=== PATIENT | male | born 1945 | race Caucasian/White ===

== ENCOUNTER 2016-12-17 12:29 | Inpatient (IN) | payer MEDICARE ==
[~2016-12-17] VITALS: Ht 172.7 cm; Wt 128.7 kg
[2016-12-17] MEDS ORDERED: METF-415 PO ×2 (12:41→18:31)
[2016-12-17] MEDS ORDERED: HYDR25TA6 PO (12:41)
[2016-12-17] MEDS ORDERED: CETI10TA PO ×2 (12:41→18:31)
[2016-12-17] MEDS ORDERED: LISI-538 PO ×2 (12:41→18:31)
[2016-12-17] MEDS ORDERED: ATEN25TA PO ×2 (12:41→18:31)
[2016-12-17] MEDS ORDERED: ROSU40TA PO (12:41)
[2016-12-17] MEDS ORDERED: NITR0.4S14 SC (12:41)
[2016-12-17] MEDS ORDERED: SERT25TA88 PO ×2 (12:41→18:31)
[2016-12-17] MEDS ORDERED: PERCOCET 5MG/325MG TAB PO ONE (13:30)
[2016-12-17 14:41] LABS: MEAN CORPUSCULAR HEMOGLOBIN 32.2 pg (27.0-33.0); MEAN CORPUSCULAR HGB CONC 34.2 g/dl (32.0-36.5); MEAN CORPUSCULAR VOLUME 94.1 fl (80.0-96.0); NEUTROPHILS % 82.8 % (36.0-66.0); PLATELET COUNT, AUTOMATED 367 k/mm3 (150-450); RED CELL DISTRIBUTION WIDTH 12.8 % (11.5-14.5); WHITE BLOOD COUNT 17.2 K/mm3 (4.0-10.0)
[2016-12-17 14:42] LABS: BASO % 0.2 % (0.0-1.0); EOS # 0.1 K/mm3 (0.0-0.50); EOS % 0.6 % (0.0-3.0); LARGE UNSTAINED CELL # 0.3 K/mm3 (0.0-0.4); LARGE UNSTAINED CELL % 1.9 % (0.0-4.0); LYMPH # 1.8 K/mm3 (1.5-4.5); LYMPH % 8.7 % (24.0-44.0); MONO % 5.8 % (0.0-5.0); NEUTROPHILS # 14.3 K/mm3 (1.8-7.7)
[2016-12-17 15:02] LABS: ANION GAP 8 MEQ/L (8-16); BLOOD UREA NITROGEN 12 MG/DL (7-18); CALCIUM LEVEL 9.1 MG/DL (8.8-10.2); CARBON DIOXIDE LEVEL 30 MEQ/L (21-32); CHLORIDE LEVEL 92 MEQ/L (98-107); CREATININE FOR GFR 0.77 MG/DL (0.70-1.30); GLOMERULAR FILTRATION RATE > 60.0 (>42); GLUCOSE, FASTING 116 MG/DL (83-110); POTASSIUM SERUM 3.5 MEQ/L (3.5-5.1); SODIUM LEVEL 130 MEQ/L (136-145)
[2016-12-17] MEDS ORDERED: PIPERACILLIN/TAZOBACTAM SOD 3.375 GM in D5W MINI-BAG PLUS 50 ML IV ONE (17:00)
[2016-12-17] MEDS ORDERED: VANCOMYCIN HCL 1,000 MG, VIAL MATE ADAPTER 1 EACH in D5W 250 ML IV ONE ×2 (17:00→21:00)
[2016-12-17] MEDS ORDERED: ISOVUE-370 76% 100ML VIAL (Q9967) As Ordered ONE (17:07)
[2016-12-17] MEDS ORDERED: CRES40TA PO (18:31)
[2016-12-17] MEDS ORDERED: HYDR25TAB PO (18:31)
[2016-12-17] MEDS ORDERED: NITR4TASL SL (18:31)
[2016-12-17] MEDS ORDERED: ASPI1TAB15 PO (18:31)
[2016-12-17] MEDS ORDERED: NS 1,000 ML IV SCH (18:46)
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
[2016-12-17] MEDS ORDERED: DEXTROSE 50% 50 ML SYRINGE IV PRN (19:00)
[2016-12-17] MEDS ORDERED: GLUCAGON FOR INJ 1 MG VIAL (J1610) SC PRN (19:00)
[2016-12-17] MEDS ORDERED: GLUCOSE 4 GM CHEW TABLET PO PRN (19:00)
[2016-12-17] MEDS ORDERED: NITROGLYCERIN 0.4 MG SUBL TABLET SL PRN (19:00)
[2016-12-17 20:00] VITALS: BP 145/67
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
[2016-12-17] MEDS: HumaLOG INSULIN (NovoLOG) PER UNIT SC SCH (20:28)
[2016-12-17] MEDS: CETIRIZINE (ZyrTEC) 10 MG TAB PO SCH (20:44)
[2016-12-17] MEDS: ASPIRIN 81 MG ENTERIC TAB PO SCH (20:44)
[2016-12-17] MEDS: SERTRALINE HCL 25 MG TABLET PO SCH (20:44)
[2016-12-17] MEDS: ROSUVASTATIN 10 MG TAB (CRESTOR) PO SCH (20:44)
[2016-12-17] MEDS: LISINOPRIL 20 MG TAB PO SCH (20:45)
[2016-12-17] MEDS: ATENOLOL 25 MG TAB PO SCH (20:46)
[2016-12-17] MEDS: PERCOCET 5MG/325MG TAB PO PRN (21:51)
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
[2016-12-18] MEDS: PIPERACILLIN/TAZOBACTAM SOD 3.375 GM in D5W MINI-BAG PLUS 50 ML IV SCH ×4 (00:27→18:09)
[2016-12-18 02:00] VITALS: BP 138/74
[2016-12-18] MEDS: VANCOMYCIN HCL 1,000 MG, VIAL MATE ADAPTER 1 EACH in D5W 250 ML IV SCH ×2 (03:35→16:02)
[2016-12-18] MEDS: PERCOCET 5MG/325MG TAB PO PRN ×4 (05:44→21:45)
[2016-12-18 06:00] VITALS: BP 131/69
[2016-12-18 06:00] LABS: BASO % 0.3 % (0.0-1.0); EOS # 0.2 K/mm3 (0.0-0.50); EOS % 1.3 % (0.0-3.0); LARGE UNSTAINED CELL # 0.3 K/mm3 (0.0-0.4); LARGE UNSTAINED CELL % 2.2 % (0.0-4.0); LYMPH # 2.1 K/mm3 (1.5-4.5); LYMPH % 13.3 % (24.0-44.0); MEAN CORPUSCULAR HEMOGLOBIN 32.6 pg (27.0-33.0); MEAN CORPUSCULAR HGB CONC 34.8 g/dl (32.0-36.5); MEAN CORPUSCULAR VOLUME 93.8 fl (80.0-96.0); MONO # 0.9 K/mm3 (0.0-0.8); MONO % 6.8 % (0.0-5.0); NEUTROPHILS # 10.1 K/mm3 (1.8-7.7); NEUTROPHILS % 76.1 % (36.0-66.0); PLATELET COUNT, AUTOMATED 354 k/mm3 (150-450); RED CELL DISTRIBUTION WIDTH 12.8 % (11.5-14.5); WHITE BLOOD COUNT 13.3 K/mm3 (4.0-10.0)
[2016-12-18 06:14] LABS: ANION GAP 8 MEQ/L (8-16); BLOOD UREA NITROGEN 10 MG/DL (7-18); CALCIUM LEVEL 8.9 MG/DL (8.8-10.2); CARBON DIOXIDE LEVEL 27 MEQ/L (21-32); CHLORIDE LEVEL 95 MEQ/L (98-107); CREATININE FOR GFR 0.74 MG/DL (0.70-1.30); GLOMERULAR FILTRATION RATE > 60.0 (>42); GLUCOSE, FASTING 173 MG/DL (83-110); MAGNESIUM LEVEL 2.4 MG/DL (1.8-2.4); POTASSIUM SERUM 3.4 MEQ/L (3.5-5.1); SODIUM LEVEL 130 MEQ/L (136-145)
[2016-12-18 06:42] LABS: ERYTHROCYTE SEDIMENTATION RATE 63 mm/hr (0-20)
[2016-12-18] MEDS: HumaLOG INSULIN (NovoLOG) PER UNIT SC SCH ×4 (07:44→21:00)
[2016-12-18 10:00] VITALS: BP 148/90
[2016-12-18 14:00] VITALS: BP 127/65
[2016-12-18] MEDS ORDERED: POTASSIUM CHLORIDE 10 MEQ SR TABLET PO ONE (14:15)
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
[2016-12-18 16:31] LABS: ANION GAP 10 MEQ/L (8-16); BLOOD UREA NITROGEN 12 MG/DL (7-18); CALCIUM LEVEL 8.6 MG/DL (8.8-10.2); CARBON DIOXIDE LEVEL 25 MEQ/L (21-32); CHLORIDE LEVEL 97 MEQ/L (98-107); CREATININE FOR GFR 0.76 MG/DL (0.70-1.30); GLOMERULAR FILTRATION RATE > 60.0 (>42); GLUCOSE, FASTING 157 MG/DL (83-110); POTASSIUM SERUM 3.7 MEQ/L (3.5-5.1); SODIUM LEVEL 132 MEQ/L (136-145)
[2016-12-18 18:00] VITALS: BP 148/80
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
[2016-12-18] MEDS: ATENOLOL 25 MG TAB PO SCH (20:13)
[2016-12-18] MEDS: CETIRIZINE (ZyrTEC) 10 MG TAB PO SCH (20:13)
[2016-12-18] MEDS: ASPIRIN 81 MG ENTERIC TAB PO SCH (20:13)
[2016-12-18] MEDS: ROSUVASTATIN 10 MG TAB (CRESTOR) PO SCH (20:14)
[2016-12-18] MEDS: LISINOPRIL 20 MG TAB PO SCH (20:14)
[2016-12-18] MEDS: SERTRALINE HCL 25 MG TABLET PO SCH (20:14)
[2016-12-18 22:00] VITALS: BP 143/60
[2016-12-19] VITALS (8 sets, daily range): BP systolic 127–182; BP diastolic 60–84
[2016-12-19 06:03] LABS: BASO % 0.3 % (0.0-1.0); EOS # 0.3 K/mm3 (0.0-0.50); EOS % 1.8 % (0.0-3.0); LARGE UNSTAINED CELL # 0.3 K/mm3 (0.0-0.4); LYMPH # 2.1 K/mm3 (1.5-4.5); LYMPH % 11.5 % (24.0-44.0); MEAN CORPUSCULAR HEMOGLOBIN 32.2 pg (27.0-33.0); MEAN CORPUSCULAR HGB CONC 34.1 g/dl (32.0-36.5); MEAN CORPUSCULAR VOLUME 94.6 fl (80.0-96.0); MONO # 1.1 K/mm3 (0.0-0.8); MONO % 7.2 % (0.0-5.0); NEUTROPHILS % 77.1 % (36.0-66.0); PLATELET COUNT, AUTOMATED 364 k/mm3 (150-450); RED CELL DISTRIBUTION WIDTH 12.9 % (11.5-14.5); WHITE BLOOD COUNT 15.6 K/mm3 (4.0-10.0)
[2016-12-19 06:28] LABS: ANION GAP 9 MEQ/L (8-16); BLOOD UREA NITROGEN 8 MG/DL (7-18); CALCIUM LEVEL 8.3 MG/DL (8.8-10.2); CARBON DIOXIDE LEVEL 25 MEQ/L (21-32); CHLORIDE LEVEL 103 MEQ/L (98-107); CREATININE FOR GFR 0.71 MG/DL (0.70-1.30); GLOMERULAR FILTRATION RATE > 60.0 (>42); GLUCOSE, FASTING 161 MG/DL (83-110); MAGNESIUM LEVEL 2.6 MG/DL (1.8-2.4); SODIUM LEVEL 137 MEQ/L (136-145)
[2016-12-19 06:51] LABS: ERYTHROCYTE SEDIMENTATION RATE 63 mm/hr (0-20)
[2016-12-19] MEDS: HumaLOG INSULIN (NovoLOG) PER UNIT SC SCH ×4 (07:30→21:00)
[2016-12-19] MEDS: SILVER SULFADIAZINE 1% CR 50 GM JAR TOP SCH (07:44)
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
[2016-12-19] MEDS: PERCOCET 5MG/325MG TAB PO PRN ×4 (12:48→22:54)
--- NOTE | 2016-12-19 12:53 | IPN ---
DATE: 12/19/2016 SUBJECTIVE: The patient tells me that his pain is under control. He tells me that he has no fevers, chills, chest pain, shortness of breath, nausea, vomiting, or diarrhea. OBJECTIVE: Vital Signs: Temperature 98.2. Pulse 71. Respiratory rate 18. Blood pressure 160/72. Oxygen saturation 92% on room air. General: He is a pleasant, disheveled, elderly, man lying flat in bed in no distress. HEENT: Cranial nerves II-XII grossly intact. He has moist mucous membranes. No elevation of CVP. Cardiovascular Exam: S1, S2, regular. Respiratory Exam: Clear. Abdominal Exam: Obese. Extremities: No clubbing or cyanosis. He has Kerlix wrapped around his right lower extremity which is serosanguineous stained. His left lower extremity ecchymotic area appears unchanged. LABORATORY STUDIES: Today, WBC 15.6, hemoglobin 12.1, hematocrit 35.5 and platelet count 364,000. Erythrocyte sedimentation rate is present at 63. Chemistry panel with sodium 137, potassium 4.0, chloride 103, bicarbonate 25, BUN 8, creatinine 0.7, CRP 8.9 down from 11.5 yesterday. MICROBIOLOGY: Blood cultures are negative thus far after 24 hours. The wound culture reveals a few gram negative rods, a few gram positive cocci in pairs. No new imaging. ASSESSMENT AND PLAN: This is a 71-year-old man with lower extremity wounds secondary to granda. 1. Granda. Dr. Freire's help has been greatly appreciated. The plan is for him to go to the operating room (OR) today for debridement. Dressing changes as per Dr. Freire who has seen and evaluated the patient's wounds at bedside. Dr. Hill's recommendations are appreciated. However, he has been unable to physically visit the patient and inspect the wounds and as such for now will stick with Dr. Freire's recommendations. In terms of antibiotics, Dr. Fox has narrowed antibiotic spectrum. Her help is greatly appreciated. Dr. Hill feels there is no indication for IV antibiotics. Once again, unfortunately, he has been unable to personally actually see these wounds and as such will defer to infectious disease specialist. 2. Type 2 diabetes. He is on sliding scale. 3. Hypertension. He is on atenolol and lisinopril. 4. Mood disorder. He is on Sertraline. 5. Coronary artery disease. He is on an aspirin, statin and a beta chari. 6. Hyponatremia. Likely hypovolemic. Resolved with IV fluids. Will discontinue any further IV fluids after OR debridement. 7. Seasonal allergies. He is on Zyrtec. 8. Deep vein thrombosis (DVT) prophylaxis. Sequentials and thromboembolic deterrent stockings (TEDS). Early ambulation. Following debridement, could consider starting pharmacological DVT prophylaxis tomorrow.
[2016-12-19] MEDS ORDERED: SUCCINYLCHOLINE 100 MG/5 ML SYRINGE (J0330) As Ordered ONE (16:49)
[2016-12-19] MEDS ORDERED: MIDAZOLAM INJ 2 MG/2 ML VIAL (J2250) As Ordered ONE (16:49)
[2016-12-19] MEDS ORDERED: ETOMIDATE INJ 20MG/10ML VIAL As Ordered ONE (16:49)
[2016-12-19] MEDS ORDERED: LIDOCAINE 2% INJ 100 MG/5 ML SDV (FOR ANES.) As Ordered ONE (16:49)
[2016-12-19] MEDS ORDERED: PROPOFOL 200 MG/20 ML VIAL As Ordered ONE (16:49)
[2016-12-19] MEDS ORDERED: fentaNYL 100 MCG/2 ML INJECTION (J3010) As Ordered ONE ×2 (16:50→18:41)
[2016-12-19] MEDS ORDERED: THROMBIN SOLN 20,000 UNITS KIT As Ordered ONE ×2 (17:10→17:47)
[2016-12-19] MEDS ORDERED: LIDOCAINE W/EPINEPHRINE 1% 20ML VIAL As Ordered ONE (17:10)
[2016-12-19] MEDS ORDERED: ROCURONIUM BROMIDE 50 MG/5 ML VIAL/SYRINGE As Ordered ONE (17:18)
[2016-12-19] MEDS ORDERED: SUGAMMADEX SODIUM 500 MG/5 ML VIAL (BRIDION) As Ordered ONE (17:53)
[2016-12-19] MEDS ORDERED: ONDANSETRON 4MG/2ML VIAL (J2405) As Ordered ONE ×2 (17:57→18:30)
--- NOTE | 2016-12-19 18:24 | ROOPDOC ---
[facility] Report Of Operation Report of Operation DATE OF PROCEDURE: 12/19/16 PREPROCEDURE DIAGNOSES: full thickness burn wound dorsum of foot (15 x 15 cms) POSTPROCEDURE DIAGNOSES: same. PROCEDURE:Sharp debridement of burn wound to healthy tissues SURGEON: Viky Freire MD LABORER [employer]ARN: SHANICE Esparza ANESTHESIA: general ESTIMATED BLOOD LOSS: [id number] mL. COMPLICATIONS: none REMARKS: full thickness/leathery burn skin on dorsum of right foot with surrounding skin down to the bases of 2nd to 4th fingers, then laterally to the lateral plantar area with deep partial thickness granda, blistering of skin. PROCEDURE NOTE: tangential burned skin debridement to healthy superficial subcutaneous tissue. no tendon involvement. DESCRIPTION OF PROCEDURE: Patient remains on antibiotics for cellulitis secondary to his delayed presentation for his burn wound. His right leg and foot is prepped and draped in usual sterile fashion. After surgical timeout may begin surgery. Using a Goulian knife, tangential debridement was performed on the eschar and full-thickness burn wound on the dorsum of his right foot which measures about 15 x 15 cm, essentially the whole of the dorsum of the foot extending to the base of the toes to the ankle area and extending laterally towards the plantar area. This was continued until we get bleeding tissues. On some of the areas where it seems towards full-thickness, there still remained some portion of the deep dermis that appears healthy. We compressed at the area with thrombin containing laparotomy pads. Brisk bleeding points were cauterized. Before putting on her final dressing we sprayed the area with thrombin once more making sure we had adequate hemostasis. The whole area was then covered with Drytex for absorption of the transudate/exudate and compression dressing using Kerlix rolls, ABD pads and Coban. Patient tolerated procedure well he was successfully extubated and brought to recovery room stable RADHA FREIRE MD Dec 19, 2016 18:24
[2016-12-19] MEDS ORDERED: PERCOCET 5MG/325MG TAB As Ordered ONE ×2 (18:41→19:18)
[2016-12-19] MEDS: fentaNYL 100 MCG/2 ML INJECTION (J3010) IV PRN ×3 (18:45→18:55)
[2016-12-19] MEDS ORDERED: LR 1,000 ML IV SCH (18:45)
[2016-12-19] MEDS ORDERED: ONDANSETRON 4MG/2ML VIAL (J2405) IV PRN (18:45)
[2016-12-19] MEDS ORDERED: ATENOLOL 25 MG TAB As Ordered ONE (19:22)
[2016-12-19] MEDS: ATENOLOL 25 MG TAB PO SCH (19:24)
[2016-12-19] MEDS ORDERED: LABETALOL HCL 100 MG/20 ML VIAL As Ordered ONE (19:28)
[2016-12-19] MEDS: LABETALOL HCL 100 MG/20 ML VIAL IV PRN ×2 (19:33→19:43)
[2016-12-19] MEDS: ASPIRIN 81 MG ENTERIC TAB PO SCH (20:26)
[2016-12-19] MEDS: CETIRIZINE (ZyrTEC) 10 MG TAB PO SCH (20:26)
[2016-12-19] MEDS: SERTRALINE HCL 25 MG TABLET PO SCH (20:26)
[2016-12-19] MEDS: ROSUVASTATIN 10 MG TAB (CRESTOR) PO SCH (20:26)
[2016-12-19] MEDS: LISINOPRIL 20 MG TAB PO SCH (20:26)
--- NOTE | 2016-12-19 21:50 | CR ---
DATE OF CONSULTATION: 12/18/2016 REASON FOR CONSULTATION: Asked to consult by hospitalist for evaluation of right foot burn. HISTORY OF PRESENT ILLNESS Mr. Crandall is a pleasant 71-year-old gentleman who spilled very hot chocolate that was coming out of a microwave over the dorsum aspect of his right foot the past Thursday, six days ago. The patient states that the wound has progressed and gotten worse. He presented his primary care physician's office who was concerned and, therefore, he sent him to the emergency room. The patient did not have any associated fever or chills, no nausea, vomiting or diarrhea, no chest pain or shortness of breath. He has been in the hospital for 48 hours, was started on broad-spectrum antibiotics with intravenous (IV) vancomycin and Zosyn. His white count which was elevated at 17,000, improved down to 13. PAST MEDICAL HISTORY: Significant for: 1. Diabetes with neuropathy, non insulin dependent. 2. Hypertension. 3. Hyperlipidemia. 4. Coronary artery disease status post percutaneous coronary intervention (PCI). PAST SURGICAL HISTORY Stent placement, colonoscopies in 2012 and 2015, done by Dr. Manning. SOCIAL HISTORY: History of tobacco abuse, quit many years ago. He denies alcohol or illicit drug use. He lives alone. He is independent. FAMILY HISTORY: Non revealing. ALLERGIES: No known drug allergies. REVIEW OF SYSTEMS: He had no sore throat, headache, no chest pain or palpitation. No shortness of breath. No nausea, vomiting or diarrhea. No abdominal pain. He does not have a great appetite. He denies any upper or lower extremity weakness. MEDICATIONS: - Silvadene applied the right foot daily - Humalog sliding scale - vancomycin 1 gram IV every 12 hours - Zosyn 3.375 grams IV every six hours - Percocet one tablet by mouth every four hours as needed - aspirin 81 mg by mouth daily - atenolol 25 mg by mouth daily - Zyrtec 10 mg by mouth daily - lisinopril 20 mg daily - Crestor 40 mg daily - Zoloft 25 mg daily - Nitrostat as needed LABORATORY DATA: White count on admission was 17.2; today was 13.3, hemoglobin 12.6, hematocrit 36.2, platelet 354. ESR 63. Sodium 132, potassium 3.7, chloride 97, bicarb 25, BUN 12, creatinine 0.76, glucose 157, calcium 8.6. CRP 11.5. MICROBIOLOGY: Blood cultures no growth after 24 hours. Wound culture was done at bedside after the dressing was changed tonight when I was examining the patient and it is still pending. IMAGING: Lower extremity CT done on 12/17 shows extensive subcutaneous edema without rim-enhancing fluid collections. No suggestion of abscess. There is some cellulitis and edema. No foreign body. PHYSICAL EXAMINATION: GENERAL: On physical exam, pleasant gentleman in no acute distress. VITAL SIGNS: Temperature 99.6, pulse 75, respirations 17, blood pressure 148/80, O2 saturation 94% on room air. Heart: Normal S1, S2. No murmurs, rubs or gallops. LUNGS: Clear. No wheezes, rales or rhonchi. ABDOMEN: Soft, nontender. No hepatosplenomegaly. Mildly obese. BACK: No costovertebral angle or lumbosacral tenderness. EXTREMITIES: No clubbing, cyanosis or edema. No calf tenderness. Right foot has an extensive burn on the dorsal aspect of the foot with a large blister, yellowish drainage. A large blister that is broken is covering the foot. There is a full-thickness burn. IMPRESSION: Full-thickness burn of the right foot with possible superimposed infection and cellulitis. The patient had a white count and low-grade fever. He has been started on broad-spectrum antibiotic with vancomycin and Zosyn although I do not think he needs this broad coverage. PLAN: Wound dressing changes per Dr. Freire who has ordered some Silvadene dressing, and debridement of the blisters. Debridement of the tissue should be done to decrease risk of superimposed bacterial infection. Discontinue IV Zosyn and continue with vancomycin pending results of culture. These infections mostly are staphylococcus related. The patient is not septic, does not have fever, and I do not think he needs anaerobic and pseudomonas coverage at this point.
[2016-12-20] VITALS (7 sets, daily range): BP systolic 134–166; BP diastolic 67–79
[2016-12-20] MEDS: PERCOCET 5MG/325MG TAB PO PRN ×4 (05:30→18:18)
[2016-12-20 05:54] LABS: BASO % 0.2 % (0.0-1.0); EOS # 0.4 K/mm3 (0.0-0.50); EOS % 2.8 % (0.0-3.0); LARGE UNSTAINED CELL # 0.4 K/mm3 (0.0-0.4); LARGE UNSTAINED CELL % 2.6 % (0.0-4.0); LYMPH # 2.5 K/mm3 (1.5-4.5); LYMPH % 15.2 % (24.0-44.0); MEAN CORPUSCULAR HEMOGLOBIN 32.6 pg (27.0-33.0); MEAN CORPUSCULAR HGB CONC 34.2 g/dl (32.0-36.5); MEAN CORPUSCULAR VOLUME 95.1 fl (80.0-96.0); MONO # 0.9 K/mm3 (0.0-0.8); MONO % 6.4 % (0.0-5.0); NEUTROPHILS % 72.8 % (36.0-66.0); PLATELET COUNT, AUTOMATED 373 k/mm3 (150-450); RED CELL DISTRIBUTION WIDTH 12.8 % (11.5-14.5); WHITE BLOOD COUNT 13.8 K/mm3 (4.0-10.0)
[2016-12-20 06:16] LABS: ANION GAP 8 MEQ/L (8-16); BLOOD UREA NITROGEN 8 MG/DL (7-18); CALCIUM LEVEL 8.3 MG/DL (8.8-10.2); CARBON DIOXIDE LEVEL 27 MEQ/L (21-32); CHLORIDE LEVEL 101 MEQ/L (98-107); CREATININE FOR GFR 0.63 MG/DL (0.70-1.30); GLOMERULAR FILTRATION RATE > 60.0 (>42); GLUCOSE, FASTING 133 MG/DL (83-110); MAGNESIUM LEVEL 2.5 MG/DL (1.8-2.4); POTASSIUM SERUM 4.1 MEQ/L (3.5-5.1); SODIUM LEVEL 136 MEQ/L (136-145)
[2016-12-20 06:41] LABS: ERYTHROCYTE SEDIMENTATION RATE 63 mm/hr (0-20)
[2016-12-20] MEDS: SILVER SULFADIAZINE 1% CR 50 GM JAR TOP SCH (08:06)
[2016-12-20] MEDS: HumaLOG INSULIN (NovoLOG) PER UNIT SC SCH ×4 (08:10→21:00)
[2016-12-20] MEDS: ENOXAPARIN 40 MG/0.4 ML SYRINGE (J1650) SC SCH (13:48)
--- NOTE | 2016-12-20 13:56 | IPN ---
DATE: 12/20/2016 SUBJECTIVE: Today the patient tells me that he has some pain in the right foot. He has difficulty placing pressure on it. He denies chest pain, fevers, chills, nausea, vomiting or diarrhea. OBJECTIVE: VITAL SIGNS: Temperature 98.5, pulse 56, respiratory rate 20, blood pressure 143/70, oxygen saturation 91% in room air. GENERAL: He is very pleasant elderly male laying flat in bed. He does not appear to be in any acute distress. He is mildly disheveled. HEENT: Cranial nerves II through XII are grossly intact. He has moist mucous membranes. No elevation of CVP. CARDIOVASCULAR: S1, S2 regular. RESPIRATORY: Exam is clear. ABDOMEN: Exam is grossly obese. Bowel sounds are present. Abdomen is soft. EXTREMITIES: No clubbing, cyanosis or edema. His right lower extremity dressing is PAWEL wrapped. The dressing is clean, dry and intact. LABORATORY STUDIES: WBC 13.8, hemoglobin 11.9, platelet count 373. Chemistry panel: Sodium 136, potassium 4.1, chloride 101, bicarbonate 27, BUN 8, creatinine 0.6. Microbiology is pending. No new imaging. ASSESSMENT/PLAN: This is a 71-year-old man with full thickness burn of the right foot with possible superimposed infection. PROBLEMS: 1. Full thickness granda: Dr. Freire's help is appreciated. The patient is status post OR debridement yesterday. Dressing changes as per Dr. Freire. Will await further recommendations from general surgery as to whether or not the patient will require a skin graft when he is able to participate in physical therapy or any further inpatient management regarding his wounds. Dr. Fox has placed the patient on cefazolin which we will continue and followup his cultures. He has a persistent leukocytosis. Inflammatory markers are all relatively stable and unchanged from the time of admission. He appears to be stable and doing quite well. 2. Type 2 diabetes: He is on a sliding scale. 3. Hypertension: He is on a atenolol and lisinopril with blood pressures controlled. 4. Mood disorder: He is on sertraline. 5. Coronary artery disease: He is on an aspirin, statin and a beta chari. 6. Hyponatremia: Likely hypovolemic, resolved. 7. Seasonal allergies: He is on Zyrtec. 8. Deep venous thrombosis prophylaxis: Sequentials and thromboembolic deterrent stockings (TEDS), early ambulation. I will start the patient on Lovenox. DISPOSITION: Pending further recommendations from general surgery.
--- NOTE | 2016-12-20 17:50 | IPN ---
DATE: 12/19/2016 Mr. Crandall was scheduled to go to the operating room today by Dr. Freire. He went to the operating room (OR) at 6 p.m.. A full-thickness burn of the dorsa of the foot, 15 x 15 cm, was debrided sharply to healthy tissue. The patient has been afebrile throughout this admission with a maximum temperature of 99.6. He denies any nausea, vomiting, diarrhea, abdominal pain, fever, or chills. He states he is hungry as he is nothing by mouth. LABORATORY DATA White count is 15.6, hemoglobin 12.1, hematocrit 35.5, platelets 364, 77% neutrophils, 11% lymphocytes. Sodium 137, potassium 4, chloride 103, bicarbonate 25, BUN 8, creatinine 0.7, glucose 161, calcium 8.3, magnesium 2.6. CRP is 8.9, down from 11.5. Wound Gram stain done last night showed few gram-negative rods, few gram-positive cocci in pairs. IMPRESSION: Second-degree burn of the right foot, status post sharp debridement with possible superimposed cellulitis, although I am not sure about that. He did have definitely an elevated white count, but that could be just inflammatory. The patient is currently on IV cefazolin 2 grams every 6 hours. Continue IV antibiotics. At this time, based on result, de-escalate therapy. Dr. Freire following the patient. I will be signing off, as I am not available in the next couple weeks. Thank you for consultation.
[2016-12-20] MEDS: SERTRALINE HCL 25 MG TABLET PO SCH (21:52)
[2016-12-20] MEDS: LISINOPRIL 20 MG TAB PO SCH (21:52)
[2016-12-20] MEDS: ASPIRIN 81 MG ENTERIC TAB PO SCH (21:52)
[2016-12-20] MEDS: ROSUVASTATIN 10 MG TAB (CRESTOR) PO SCH (21:52)
[2016-12-20] MEDS: ATENOLOL 25 MG TAB PO SCH (21:52)
[2016-12-20] MEDS: CETIRIZINE (ZyrTEC) 10 MG TAB PO SCH (21:52)
[2016-12-21] MEDS: PERCOCET 5MG/325MG TAB PO PRN ×4 (00:02→18:17)
[2016-12-21 02:00] VITALS: BP 170/79
[2016-12-21 06:00] VITALS: BP 161/80
[2016-12-21 06:03] LABS: BASO % 0.4 % (0.0-1.0); EOS # 0.6 K/mm3 (0.0-0.50); EOS % 4.7 % (0.0-3.0); LARGE UNSTAINED CELL # 0.3 K/mm3 (0.0-0.4); LARGE UNSTAINED CELL % 2.6 % (0.0-4.0); LYMPH # 2.3 K/mm3 (1.5-4.5); LYMPH % 15.1 % (24.0-44.0); MEAN CORPUSCULAR HGB CONC 33.8 g/dl (32.0-36.5); MEAN CORPUSCULAR VOLUME 94.6 fl (80.0-96.0); MONO # 0.8 K/mm3 (0.0-0.8); MONO % 6.1 % (0.0-5.0); NEUTROPHILS # 9.1 K/mm3 (1.8-7.7); PLATELET COUNT, AUTOMATED 399 k/mm3 (150-450); RED CELL DISTRIBUTION WIDTH 12.9 % (11.5-14.5); WHITE BLOOD COUNT 12.8 K/mm3 (4.0-10.0)
[2016-12-21 06:22] LABS: ANION GAP 7 MEQ/L (8-16); BLOOD UREA NITROGEN 10 MG/DL (7-18); CALCIUM LEVEL 8.3 MG/DL (8.8-10.2); CARBON DIOXIDE LEVEL 27 MEQ/L (21-32); CHLORIDE LEVEL 102 MEQ/L (98-107); CREATININE FOR GFR 0.65 MG/DL (0.70-1.30); GLOMERULAR FILTRATION RATE > 60.0 (>42); GLUCOSE, FASTING 152 MG/DL (83-110); MAGNESIUM LEVEL 2.3 MG/DL (1.8-2.4); POTASSIUM SERUM 4.3 MEQ/L (3.5-5.1); SODIUM LEVEL 136 MEQ/L (136-145)
[2016-12-21 06:36] LABS: ERYTHROCYTE SEDIMENTATION RATE 61 mm/hr (0-20)
[2016-12-21] MEDS: HumaLOG INSULIN (NovoLOG) PER UNIT SC SCH ×4 (08:13→21:00)
[2016-12-21] MEDS: ENOXAPARIN 40 MG/0.4 ML SYRINGE (J1650) SC SCH (08:14)
[2016-12-21] MEDS: SILVER SULFADIAZINE 1% CR 50 GM JAR TOP SCH (08:14)
[2016-12-21 10:00] VITALS: BP 154/82
[2016-12-21] MEDS: DOXYCYCLINE HYCLATE 100 MG TAB PO SCH ×2 (10:06→21:13)
--- NOTE | 2016-12-21 13:06 | IPN ---
DATE: 12/21/2016 SUBJECTIVE: This morning the patient tells me that he is feeling well. He has some mild pain on the right lower extremity, but otherwise it is better than yesterday. He denies any fevers, chills, chest pain, shortness of breath, nausea, vomiting or diarrhea. OBJECTIVE: VITAL SIGNS: Temperature 98.1, pulse 63, respiratory rate 18, blood pressure 161/80, oxygen saturation 93% in room air. GENERAL: He is a disheveled elderly male laying flat in bed, sleeping peacefully. He is easily arousable to verbal stimuli. He does not appear to be in any acute distress whatsoever. HEENT: He is disheveled. Moist mucous membranes. No elevation of CVP. Cranial nerves II through XII are grossly intact. CARDIOVASCULAR EXAM: S1, S2 regular. RESPIRATORY EXAM: Clear. ABDOMEN EXAM: Grossly obese. EXTREMITIES: His right lower extremity dressing appears to be serosanguineously stained, but it is dry and intact. LABORATORY STUDIES: WBC 12.8, hemoglobin 11.8, platelet count 399. Chemistry panel: Sodium 136, potassium 4.3, chloride 102, bicarbonate 27, BUN 10, creatinine 0.6. Microbiology: Cultures from the right foot revealed group G strep and Staphylococcus Aureus, both sensitive to tetracycline, Bactrim. No new imaging. ASSESSMENT/PLAN: This is a 71-year-old man with full thickness burn of the right foot with possible superimposed infection. PROBLEMS: 1. Full thickness granda. Dr. Freire's help is appreciated. He is status post OR debridement on Thursday. As per Dr. Thorne's most recent progress note, the plan is for continued wound care. It is unclear to me if the patient needs to remain in the hospital for this. I will have physical therapy evaluate him to assess his abilities to return home where he lives alone. At this time I will transition is his antibiotics and narrow the spectrum as appropriate to doxycycline 100 mg by mouth twice a day to complete a 10 day course. I suspect he would benefit from a skin grafting in the future and chronic wound care will be required for this. 2. Type 2 diabetes. He is on a sliding scale. 3. Hypertension. He is on a atenolol and lisinopril. His blood pressure is controlled. 4. Mood disorder. He is on sertraline. 5. Coronary artery disease. He is on an aspirin, statin and a beta-chari. 6. Hyponatremia. Was hypovolemic, resolved. 7. Seasonal allergies. He is on Zyrtec. 8. Deep venous thrombosis prophylaxis. Patient is on Lovenox. DISPOSITION: Pending further recommendations from general surgery.
[2016-12-21 14:00] VITALS: BP 155/76
[2016-12-21 21:06] VITALS: BP 131/68
[2016-12-21] MEDS: ROSUVASTATIN 10 MG TAB (CRESTOR) PO SCH (21:13)
[2016-12-21] MEDS: SERTRALINE HCL 25 MG TABLET PO SCH (21:13)
[2016-12-21] MEDS: CETIRIZINE (ZyrTEC) 10 MG TAB PO SCH (21:13)
[2016-12-21] MEDS: ASPIRIN 81 MG ENTERIC TAB PO SCH (21:13)
[2016-12-21] MEDS: ATENOLOL 25 MG TAB PO SCH (21:14)
[2016-12-21] MEDS: LISINOPRIL 20 MG TAB PO SCH (21:14)
[2016-12-22] MEDS: PERCOCET 5MG/325MG TAB PO PRN ×5 (00:06→21:30)
[2016-12-22 02:00] VITALS: BP 141/77
[2016-12-22 05:46] LABS: BASO % 0.3 % (0.0-1.0); EOS # 0.5 K/mm3 (0.0-0.50); EOS % 4.6 % (0.0-3.0); LARGE UNSTAINED CELL # 0.3 K/mm3 (0.0-0.4); LARGE UNSTAINED CELL % 2.3 % (0.0-4.0); LYMPH # 2.3 K/mm3 (1.5-4.5); MEAN CORPUSCULAR HEMOGLOBIN 32.2 pg (27.0-33.0); MEAN CORPUSCULAR HGB CONC 33.6 g/dl (32.0-36.5); MEAN CORPUSCULAR VOLUME 95.6 fl (80.0-96.0); MONO # 0.6 K/mm3 (0.0-0.8); MONO % 5.5 % (0.0-5.0); NEUTROPHILS # 7.8 K/mm3 (1.8-7.7); NEUTROPHILS % 69.3 % (36.0-66.0); PLATELET COUNT, AUTOMATED 417 k/mm3 (150-450); RED CELL DISTRIBUTION WIDTH 12.7 % (11.5-14.5); WHITE BLOOD COUNT 11.2 K/mm3 (4.0-10.0)
[2016-12-22 05:49] LABS: ANION GAP 8 MEQ/L (8-16); BLOOD UREA NITROGEN 9 MG/DL (7-18); CALCIUM LEVEL 8.5 MG/DL (8.8-10.2); CARBON DIOXIDE LEVEL 27 MEQ/L (21-32); CHLORIDE LEVEL 102 MEQ/L (98-107); CREATININE FOR GFR 0.73 MG/DL (0.70-1.30); GLOMERULAR FILTRATION RATE > 60.0 (>42); GLUCOSE, FASTING 140 MG/DL (83-110); MAGNESIUM LEVEL 2.5 MG/DL (1.8-2.4); POTASSIUM SERUM 4.2 MEQ/L (3.5-5.1); SODIUM LEVEL 137 MEQ/L (136-145)
[2016-12-22 06:00] VITALS: BP 153/74
[2016-12-22 07:03] LABS: ERYTHROCYTE SEDIMENTATION RATE 82 mm/hr (0-20)
[2016-12-22] MEDS: ENOXAPARIN 40 MG/0.4 ML SYRINGE (J1650) SC SCH (08:33)
[2016-12-22] MEDS: DOXYCYCLINE HYCLATE 100 MG TAB PO SCH ×2 (08:33→21:28)
[2016-12-22] MEDS: HumaLOG INSULIN (NovoLOG) PER UNIT SC SCH ×4 (08:34→21:00)
[2016-12-22] MEDS: SILVER SULFADIAZINE 1% CR 50 GM JAR TOP SCH (09:00)
[2016-12-22 10:00] VITALS: BP 134/76
--- NOTE | 2016-12-22 11:12 | IPNPDOC ---
Subjective General Date/Time Seen The patient was seen on 12/22/16 at 11:08. Subject Chief Complaint/History The patient is a 71-year-old male admitted with a reason for visit of Second Degree Burn,Cellulitis. Patient underwent debridement of his burn wound last Thursday. He remained stable through the weekend. Reports he is able to put some pressure on the affected foot, ambulating without. His dressings were removed and his wound examined today. Current Medications Current Medications Current Medications Aspirin (Ecotrin) 81 mg QPM PO Last administered on 12/21/16 21:13; Start at 21:00; Stop 01/16/17 at 20:59 Atenolol (Tenormin) 25 mg QPM PO Last administered on 12/21/16 21:14; Start at 21:00; Stop 01/16/17 at 20:59 Cefazolin Sodium/ Dextrose 2 gm/IV Miscellaneous Supplies 50 ml @ 75 mls/hr Q8H IV Last administered on 12/21/16 08:14; Start 12/19/16 at 00:00; Stop at 08:49; Status DC Cetirizine HCl (ZyrTEC) 10 mg QPM PO Last administered on 12/21/16 21:13; Start 12/17/16 at 21:00; Stop 01/16/17 at 20:59 Dextrose (Dextrose 50%) 25 ml ASDIRECTED PRN IV SEE LABEL COMMENTS; Start 12/17 at 19:00; Stop 01/16/17 at 18:59 Doxycycline Hyclate (Vibramycin) 100 mg BID PO Last administered on 12/22/16 08:33; Start 12/21/16 at 09:00; Stop 12/28/16 at 08:59 Enoxaparin Sodium (Lovenox) 40 mg DAILY SC Last administered on 12/22/16 08:33 ; Start 12/20/16 at 09:00; Stop 12/25/16 at 08:59 Fentanyl Citrate (Sublimaze) 25 mcg Q5MP PRN IV MODERATE PAIN (PS 4-7) Last administered on 12/19/16 18:55; Start 12/19/16 at 18:45; Stop 12/19/16 at 19:45 ; Status DC Glucagon (Glucagon) 1 mg ASDIRECTED PRN SC SEE LABEL COMMENTS; Start 12/17/16 at 19:00; Stop 01/16/17 at 18:59 Glucose (Glucose) 16 GM ASDIRECTED PRN PO SEE LABEL COMMENTS; Start 12/17/16 at 19:00; Stop 01/16/17 at 18:59 Home Med (Med Rec Complete!) ASDIRECTED XX ; Start 12/17/16 at 18:45; Stop at 18:45; Status DC Insulin Human Lispro (HumaLOG INSULIN) SEE PROTOCOL TABLE AC SC Last administered on 12/22/16 08:34; Start 12/18/16 at 07:30; Stop 01/17/17 at 07:29 Insulin Human Lispro (HumaLOG INSULIN) SEE PROTOCOL TABLE QHS SC ; Start at 21:00; Stop 01/16/17 at 20:59 Labetalol HCl (Normodyne, Trandate) 5 mg Q5M PRN IV TITRATE TO SBP <160/95 Last administered on 12/19/16 19:43; Start 12/19/16 at 19:45; Stop 12/19/16 at 20:45; Status DC Lactated Ringer's 1,000 ml @ 80 mls/hr [id number] IV ; Start 12/19/16 at 18:45; Stop 12/19/16 at 19:45; Status DC Lisinopril (Prinivil) 20 mg QPM PO Last administered on 12/21/16 21:14; Start 12/17/16 at 21:00; Stop 01/16/17 at 20:59 Nitroglycerin (Nitrostat (1/ 150)) 0.4 mg Q5MP PRN SL CHEST PAIN; Start at 19:00; Stop 01/16/17 at 18:59 Ondansetron HCl (ZOFRAN INJection) 4 mg Q4HP PRN IV NAUSEA OR VOMITING Last administered on 12/19/16 18:45; Start 12/19/16 at 18:45; Stop 12/19/16 at 19:45 ; Status DC Oxycodone/ Acetaminophen (Percocet 5mg/ 325mg Tablet) 1 tab ASDIRECTED PRN PO MILD/MODERATE PAIN (PS 1-7) Last administered on 12/19/16 19:18; Start at 19:15; Stop 12/19/16 at 20:15; Status DC Oxycodone/ Acetaminophen (Percocet 5mg/ 325mg Tablet) 1 tab Q4HP PRN PO MILD/ MODERATE PAIN (PS 1-7) Last administered on 12/22/16 06:00; Start 12/17/16 at 21:45; Stop 12/24/16 at 21:44 Oxycodone/ Acetaminophen (Percocet 5mg/ 325mg Tablet) 2 tab Q6HP PRN PO SEVERE PAIN (PS 8-10) Last administered on 12/22/16 10:11; Start 12/20/16 at 17:15; Stop 12/27/16 at 17:14 Piperacillin Sod/ Tazobactam Sod 3.375 gm/Dextrose 50 ml @ 50 mls/hr Q6H IV Last administered on 12/18/16 18:09; Start 12/18/16 at 01:00; Stop 12/18/16 at 22:45; Status DC Rosuvastatin Calcium (Crestor) 40 mg QPM PO Last administered on 12/21/16 21: 13; Start 12/17/16 at 21:00; Stop 01/16/17 at 20:59 Sertraline HCl (Zoloft) 25 mg QPM PO Last administered on 12/21/16 21:13; Start 12/17/16 at 21:00; Stop 01/16/17 at 20:59 Silver Sulfadiazine (Silvadene 1%) Apply to right foot DAILY TOP ; Start at 09:00; Stop 01/18/17 at 08:59 Sodium Chloride 1,000 ml @ 80 mls/hr [id number] IV Last administered on 20:37; Start 12/17/16 at 18:46; Stop 12/18/16 at 07:15; Status DC Vancomycin HCl 1000 mg/IV Miscellaneous Supplies 1 each/ Dextrose 270 ml @ 270 mls/hr Q12H IV Last administered on 12/18/16 16:02; Start 12/18/16 at 04:00; Stop 12/18/16 at 22:45; Status DC Allergies Coded Allergies: No Known Drug Allergy (Verified Allergy, Unknown, 12/17/16) Objective Physical Examination Examination GENERAL APPEARANCE:Patient seen, laying in bed, awake, alert, and oriented. Comfortable, in no acute distress. SKIN: Warm and moist. HEENT: Normocephalic, atraumatic. [place] palpebral conjunctiva, anicteric sclerae. Lips and mucosa appear moist. NECK: Supple, no thyromegaly. No obvious jugular venous distention. LUNGS: Clear to auscultation bilaterally. No wheezing appreciated. HEART: No chest wall abnormalities. Regular rate and rhythm with no murmurs appreciated. EXTREMITIES: Right foot: The right foot and leg edema has markedly improved with a compression dressing. The original dressings were removed. Healthy pink beginning epithelialization seen at the center of the wound. Cellulitis also receding. Wound area measures 15 x 15 cm from the dorsum of the foot and extending laterally to the plantar area and medially towards the base of the first digit with extension of the burn wound at the proximal joints of all 5 digits. Vital Signs Vital Signs Date Time Temp Pulse Resp B/P (MAP) Pulse Ox O2 Delivery O2 Flow Rate FiO2 12/22/16 10:11 20 12/22/16 10:00 97.4 75 134/76 (95) 100 Room Air 12/19/16 19:25 3 I&Os I&O- Last 24 Hours up to 6 AM 12/22/16 06:00 Intake Total 2510 ml Output Total 3225 ml Balance -715 ml Laboratory Data Labs 24H Laboratory Tests 2 12/21/16 11:14: Bedside Glucose (Misc Panel) 132H 12/21/16 16:32: Bedside Glucose (Misc Panel) 126H 12/21/16 20:44: Bedside Glucose (Misc Panel) 168H 12/22/16 04:55: White Blood Count 11.2H, Red Blood Count 3.60L, Hemoglobin 11.6L, Hematocrit 34.4L, Mean Corpuscular Volume 95.6, Mean Corpuscular Hemoglobin 32.2, Mean Corpuscular Hemoglobin Concent 33.6, Red Cell Distribution Width 12.7, Platelet Count 417, Neutrophils (%) (Auto) 69.3H, Lymphocytes (%) (Auto) 18.0L, Monocytes (%) (Auto) 5.5H, Eosinophils (%) (Auto) 4.6H, Basophils (%) (Auto) 0.3 , Neutrophils # (Auto) 7.8H, Lymphocytes # (Auto) 2.3, Monocytes # (Auto) 0.6, Eosinophils # (Auto) 0.5, Basophils # (Auto) 0.0, Large Unclassified Cells % 2.3 , Large Unclassified Cells # 0.3, Erythrocyte Sedimentation Rate 82H, Anion Gap 8, Glomerular Filtration Rate > 60.0, Blood Urea Nitrogen 9, Creatinine 0.73, Sodium Level 137, Potassium Level 4.2, Chloride Level 102, Carbon Dioxide Level 27, Calcium Level 8.5L, Magnesium Level 2.5H, C-Reactive Protein, Quantitative 7.41H CBC/BMP Laboratory Tests 12/22/16 04:55 Red Blood Count 3.60 L, Mean Corpuscular Volume 95.6, Mean Corpuscular Hemoglobin 32.2, Mean Corpuscular Hemoglobin Concent 33.6, Red Cell Distribution Width 12.7, Neutrophils (%) (Auto) 69.3 H, Lymphocytes (%) (Auto) 18.0 L, Monocytes (%) (Auto) 5.5 H, Eosinophils (%) (Auto) 4.6 H, Basophils (%) (Auto) 0.3, Neutrophils # (Auto) 7.8 H, Lymphocytes # (Auto) 2.3, Monocytes # ( Auto) 0.6, Eosinophils # (Auto) 0.5, Basophils # (Auto) 0.0, Calcium Level 8.5 L Microbiology Microbiology 12/17/16 Blood Culture - Preliminary, Resulted No Growth after 72 hours. All specime... 12/17/16 Blood Culture - Preliminary, Resulted No Growth after 72 hours. All specime... 12/18/16 Gram Stain - Final, Complete 12/18/16 Wound Culture - Final, Complete Streptococcus Group G Staphylococcus Aureus Impression Burn wound right foot He originally thought he may need a split-thickness skin graft to cover the wound but looking at it today, I think a CT beginning epithelialization at the middle of the wound with a hole wound looking pink and healthy. Tried look for Acticoat silver dressing but could not find it in our wound cart. For now we'll do Xeroform dressing on top of the wound bed with compression using Kerlix and Coban. Other alternatives probably can be an Unna boot which needs just be changed once weekly. We'll take a look at the wound once a. Patient can ambulate with the dressing. Continue to elevate the foot when he is laying on the bed and avoid dangling the foot to reduce the swelling. Plan / VTE VTE Prophylaxis Ordered?: Yes RADHA MEJIA MD Dec 22, 2016 11:12
[2016-12-22 14:00] VITALS: BP 150/80
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
[2016-12-22 18:00] VITALS: BP 136/71
[2016-12-22] MEDS: CETIRIZINE (ZyrTEC) 10 MG TAB PO SCH (21:28)
[2016-12-22] MEDS: ROSUVASTATIN 10 MG TAB (CRESTOR) PO SCH (21:28)
[2016-12-22] MEDS: SERTRALINE HCL 25 MG TABLET PO SCH (21:28)
[2016-12-22] MEDS: ASPIRIN 81 MG ENTERIC TAB PO SCH (21:28)
[2016-12-22] MEDS: LISINOPRIL 20 MG TAB PO SCH (21:29)
[2016-12-22] MEDS: ATENOLOL 25 MG TAB PO SCH (21:29)
[2016-12-22 22:00] VITALS: BP 161/86
[2016-12-23] VITALS (8 sets, daily range): BP systolic 122–160; BP diastolic 58–84
[2016-12-23] MEDS: PERCOCET 5MG/325MG TAB PO PRN ×5 (03:35→20:56)
[2016-12-23 06:05] LABS: BASO % 0.3 % (0.0-1.0); EOS # 0.3 K/mm3 (0.0-0.50); EOS % 2.7 % (0.0-3.0); LARGE UNSTAINED CELL # 0.3 K/mm3 (0.0-0.4); LARGE UNSTAINED CELL % 2.6 % (0.0-4.0); LYMPH % 14.1 % (24.0-44.0); MEAN CORPUSCULAR HGB CONC 33.2 g/dl (32.0-36.5); MEAN CORPUSCULAR VOLUME 96.3 fl (80.0-96.0); MONO # 0.6 K/mm3 (0.0-0.8); MONO % 4.9 % (0.0-5.0); NEUTROPHILS % 75.3 % (36.0-66.0); PLATELET COUNT, AUTOMATED 448 k/mm3 (150-450); RED CELL DISTRIBUTION WIDTH 12.8 % (11.5-14.5)
[2016-12-23 06:25] LABS: ANION GAP 6 MEQ/L (8-16); BLOOD UREA NITROGEN 8 MG/DL (7-18); CALCIUM LEVEL 8.6 MG/DL (8.8-10.2); CARBON DIOXIDE LEVEL 27 MEQ/L (21-32); CHLORIDE LEVEL 104 MEQ/L (98-107); GLOMERULAR FILTRATION RATE > 60.0 (>42); GLUCOSE, FASTING 147 MG/DL (83-110); MAGNESIUM LEVEL 2.5 MG/DL (1.8-2.4); POTASSIUM SERUM 4.3 MEQ/L (3.5-5.1); SODIUM LEVEL 137 MEQ/L (136-145)
[2016-12-23 06:44] LABS: ERYTHROCYTE SEDIMENTATION RATE 67 mm/hr (0-20)
[2016-12-23] MEDS: DOXYCYCLINE HYCLATE 100 MG TAB PO SCH ×2 (08:20→20:19)
[2016-12-23] MEDS: HumaLOG INSULIN (NovoLOG) PER UNIT SC SCH ×4 (08:21→20:20)
[2016-12-23] MEDS: ENOXAPARIN 40 MG/0.4 ML SYRINGE (J1650) SC SCH (08:21)
[2016-12-23] MEDS: SILVER SULFADIAZINE 1% CR 50 GM JAR TOP SCH (08:21)
[2016-12-23] MEDS ORDERED: ONDANSETRON 4MG/2ML VIAL (J2405) IV PRN (10:15)
[2016-12-23] MEDS: ASPIRIN 81 MG ENTERIC TAB PO SCH (20:19)
[2016-12-23] MEDS: SERTRALINE HCL 25 MG TABLET PO SCH (20:19)
[2016-12-23] MEDS: CETIRIZINE (ZyrTEC) 10 MG TAB PO SCH (20:20)
[2016-12-23] MEDS: ROSUVASTATIN 10 MG TAB (CRESTOR) PO SCH (20:20)
[2016-12-23] MEDS: LISINOPRIL 20 MG TAB PO SCH (20:27)
[2016-12-23] MEDS: ATENOLOL 25 MG TAB PO SCH (20:28)
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
[2016-12-24] MEDS: PERCOCET 5MG/325MG TAB PO PRN ×5 (02:07→21:45)
[2016-12-24 03:49] VITALS: BP 130/78
[2016-12-24 06:00] VITALS: BP 140/70
[2016-12-24 06:18] LABS: BASO % 0.3 % (0.0-1.0); EOS # 0.3 K/mm3 (0.0-0.50); LARGE UNSTAINED CELL # 0.3 K/mm3 (0.0-0.4); LARGE UNSTAINED CELL % 2.5 % (0.0-4.0); LYMPH # 2.2 K/mm3 (1.5-4.5); LYMPH % 17.8 % (24.0-44.0); MEAN CORPUSCULAR HEMOGLOBIN 31.8 pg (27.0-33.0); MEAN CORPUSCULAR HGB CONC 33.1 g/dl (32.0-36.5); MEAN CORPUSCULAR VOLUME 96.3 fl (80.0-96.0); MONO # 0.5 K/mm3 (0.0-0.8); MONO % 4.9 % (0.0-5.0); NEUTROPHILS # 7.8 K/mm3 (1.8-7.7); NEUTROPHILS % 71.5 % (36.0-66.0); PLATELET COUNT, AUTOMATED 466 k/mm3 (150-450); RED CELL DISTRIBUTION WIDTH 12.8 % (11.5-14.5); WHITE BLOOD COUNT 10.9 K/mm3 (4.0-10.0)
[2016-12-24 06:25] LABS: ANION GAP 8 MEQ/L (8-16); BLOOD UREA NITROGEN 11 MG/DL (7-18); CALCIUM LEVEL 8.7 MG/DL (8.8-10.2); CARBON DIOXIDE LEVEL 29 MEQ/L (21-32); CHLORIDE LEVEL 102 MEQ/L (98-107); CREATININE FOR GFR 0.63 MG/DL (0.70-1.30); GLOMERULAR FILTRATION RATE > 60.0 (>42); GLUCOSE, FASTING 126 MG/DL (83-110); MAGNESIUM LEVEL 2.4 MG/DL (1.8-2.4); POTASSIUM SERUM 4.4 MEQ/L (3.5-5.1); SODIUM LEVEL 139 MEQ/L (136-145)
[2016-12-24 07:31] LABS: ERYTHROCYTE SEDIMENTATION RATE 64 mm/hr (0-20)
[2016-12-24 10:00] VITALS: BP 136/68
[2016-12-24] MEDS: DOXYCYCLINE HYCLATE 100 MG TAB PO SCH ×2 (10:04→20:20)
[2016-12-24] MEDS: HumaLOG INSULIN (NovoLOG) PER UNIT SC SCH ×4 (10:05→20:13)
[2016-12-24] MEDS: ENOXAPARIN 40 MG/0.4 ML SYRINGE (J1650) SC SCH (10:06)
[2016-12-24] MEDS ORDERED: MORPHINE 4 MG/ML 1ML SYRINGE As Ordered ONE (10:38)
[2016-12-24] MEDS ORDERED: MORPHINE 4 MG/ML 1ML SYRINGE IV ONE (10:45)
[2016-12-24 14:00] VITALS: BP 149/85
[2016-12-24 18:00] VITALS: BP 169/81
[2016-12-24 19:50] VITALS: BP 144/70
[2016-12-24] MEDS: LISINOPRIL 20 MG TAB PO SCH (20:19)
[2016-12-24] MEDS: ASPIRIN 81 MG ENTERIC TAB PO SCH (20:20)
[2016-12-24] MEDS: ATENOLOL 25 MG TAB PO SCH (20:20)
[2016-12-24] MEDS: CETIRIZINE (ZyrTEC) 10 MG TAB PO SCH (20:20)
[2016-12-24] MEDS: SERTRALINE HCL 25 MG TABLET PO SCH (20:20)
[2016-12-24] MEDS: ROSUVASTATIN 10 MG TAB (CRESTOR) PO SCH (20:20)
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
[2016-12-25 01:50] VITALS: BP 162/84
[2016-12-25] MEDS: PERCOCET 5MG/325MG TAB PO PRN ×5 (03:08→22:21)
[2016-12-25 05:35] VITALS: BP 140/81
[2016-12-25 08:02] LABS: BASO % 0.3 % (0.0-1.0); EOS # 0.3 K/mm3 (0.0-0.50); EOS % 2.5 % (0.0-3.0); LARGE UNSTAINED CELL # 0.2 K/mm3 (0.0-0.4); LARGE UNSTAINED CELL % 1.9 % (0.0-4.0); LYMPH # 2.1 K/mm3 (1.5-4.5); LYMPH % 15.4 % (24.0-44.0); MEAN CORPUSCULAR HEMOGLOBIN 31.9 pg (27.0-33.0); MEAN CORPUSCULAR HGB CONC 33.7 g/dl (32.0-36.5); MEAN CORPUSCULAR VOLUME 94.6 fl (80.0-96.0); MONO # 0.6 K/mm3 (0.0-0.8); MONO % 4.7 % (0.0-5.0); NEUTROPHILS % 75.3 % (36.0-66.0); PLATELET COUNT, AUTOMATED 500 k/mm3 (150-450); RED CELL DISTRIBUTION WIDTH 12.9 % (11.5-14.5)
[2016-12-25] MEDS: ENOXAPARIN 40 MG/0.4 ML SYRINGE (J1650) SC SCH (08:15)
[2016-12-25] MEDS: HumaLOG INSULIN (NovoLOG) PER UNIT SC SCH ×4 (08:16→21:00)
[2016-12-25] MEDS: DOXYCYCLINE HYCLATE 100 MG TAB PO SCH ×2 (08:16→22:20)
[2016-12-25 10:00] VITALS: BP 142/70
[2016-12-25 10:26] LABS: ANION GAP 11 MEQ/L (8-16); BLOOD UREA NITROGEN 14 MG/DL (7-18); CARBON DIOXIDE LEVEL 24 MEQ/L (21-32); CHLORIDE LEVEL 101 MEQ/L (98-107); CREATININE FOR GFR 0.75 MG/DL (0.70-1.30); GLOMERULAR FILTRATION RATE > 60.0 (>42); GLUCOSE, FASTING 213 MG/DL (83-110); MAGNESIUM LEVEL 2.3 MG/DL (1.8-2.4); POTASSIUM SERUM 4.7 MEQ/L (3.5-5.1); SODIUM LEVEL 136 MEQ/L (136-145)
[2016-12-25 14:00] VITALS: BP 161/75
[2016-12-25 18:00] VITALS: BP 143/68
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
[2016-12-25] MEDS: SERTRALINE HCL 25 MG TABLET PO SCH (21:00)
[2016-12-25 22:00] VITALS: BP 158/78
[2016-12-25] MEDS: ROSUVASTATIN 10 MG TAB (CRESTOR) PO SCH (22:19)
[2016-12-25] MEDS: CETIRIZINE (ZyrTEC) 10 MG TAB PO SCH (22:19)
[2016-12-25] MEDS: LISINOPRIL 20 MG TAB PO SCH (22:19)
[2016-12-25] MEDS: ATENOLOL 25 MG TAB PO SCH (22:20)
[2016-12-25] MEDS: ASPIRIN 81 MG ENTERIC TAB PO SCH (22:20)
[2016-12-26 02:00] VITALS: BP 130/66
[2016-12-26 05:50] LABS: MEAN CORPUSCULAR HEMOGLOBIN 32.4 pg (27.0-33.0); MEAN CORPUSCULAR HGB CONC 34.2 g/dl (32.0-36.5); MEAN CORPUSCULAR VOLUME 94.6 fl (80.0-96.0); WHITE BLOOD COUNT 11.7 K/mm3 (4.0-10.0)
[2016-12-26 06:00] VITALS: BP 165/82
[2016-12-26 06:12] LABS: ANION GAP 9 MEQ/L (8-16); BLOOD UREA NITROGEN 12 MG/DL (7-18); CARBON DIOXIDE LEVEL 26 MEQ/L (21-32); CHLORIDE LEVEL 103 MEQ/L (98-107); CREATININE FOR GFR 0.61 MG/DL (0.70-1.30); GLOMERULAR FILTRATION RATE > 60.0 (>42); GLUCOSE, FASTING 131 MG/DL (83-110); MAGNESIUM LEVEL 2.3 MG/DL (1.8-2.4); POTASSIUM SERUM 4.4 MEQ/L (3.5-5.1); SODIUM LEVEL 138 MEQ/L (136-145)
[2016-12-26] MEDS: ENOXAPARIN 40 MG/0.4 ML SYRINGE (J1650) SC SCH (08:17)
[2016-12-26] MEDS: DOXYCYCLINE HYCLATE 100 MG TAB PO SCH ×2 (08:18→21:31)
[2016-12-26] MEDS: HumaLOG INSULIN (NovoLOG) PER UNIT SC SCH ×4 (08:18→21:32)
[2016-12-26] MEDS: PERCOCET 5MG/325MG TAB PO PRN ×4 (08:18→21:34)
[2016-12-26 10:00] VITALS: BP 145/87
[2016-12-26 14:00] VITALS: BP 148/79
[2016-12-26 18:00] VITALS: BP 150/75
[2016-12-26] MEDS: CETIRIZINE (ZyrTEC) 10 MG TAB PO SCH (21:31)
[2016-12-26] MEDS: ATENOLOL 25 MG TAB PO SCH (21:31)
[2016-12-26] MEDS: ROSUVASTATIN 10 MG TAB (CRESTOR) PO SCH (21:31)
[2016-12-26] MEDS: ASPIRIN 81 MG ENTERIC TAB PO SCH (21:31)
[2016-12-26] MEDS: SERTRALINE HCL 25 MG TABLET PO SCH (21:32)
[2016-12-26] MEDS: LISINOPRIL 20 MG TAB PO SCH (21:32)
[2016-12-26 22:00] VITALS: BP 150/74
[2016-12-27] VITALS (7 sets, daily range): BP systolic 132–154; BP diastolic 60–91
[2016-12-27] MEDS: PERCOCET 5MG/325MG TAB PO PRN ×3 (03:59→15:33)
[2016-12-27 06:05] LABS: MEAN CORPUSCULAR HEMOGLOBIN 31.8 pg (27.0-33.0); MEAN CORPUSCULAR HGB CONC 33.1 g/dl (32.0-36.5); MEAN CORPUSCULAR VOLUME 95.9 fl (80.0-96.0); RED CELL DISTRIBUTION WIDTH 12.9 % (11.5-14.5)
[2016-12-27 06:36] LABS: ANION GAP 9 MEQ/L (8-16); BLOOD UREA NITROGEN 14 MG/DL (7-18); CALCIUM LEVEL 8.7 MG/DL (8.8-10.2); CARBON DIOXIDE LEVEL 27 MEQ/L (21-32); CHLORIDE LEVEL 106 MEQ/L (98-107); CREATININE FOR GFR 0.64 MG/DL (0.70-1.30); GLOMERULAR FILTRATION RATE > 60.0 (>42); GLUCOSE, FASTING 136 MG/DL (83-110); MAGNESIUM LEVEL 2.3 MG/DL (1.8-2.4); POTASSIUM SERUM 4.3 MEQ/L (3.5-5.1); SODIUM LEVEL 142 MEQ/L (136-145)
[2016-12-27] MEDS: HumaLOG INSULIN (NovoLOG) PER UNIT SC SCH ×4 (08:08→21:00)
[2016-12-27] MEDS: DOXYCYCLINE HYCLATE 100 MG TAB PO SCH ×2 (08:08→20:23)
[2016-12-27] MEDS: ENOXAPARIN 40 MG/0.4 ML SYRINGE (J1650) SC SCH (08:09)
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
[2016-12-27] MEDS: SENOKOT S TAB PO SCH ×2 (11:30→19:59)
[2016-12-27] MEDS: oxyCODONE 15 MG CR TAB PO SCH ×2 (11:32→20:24)
[2016-12-27] MEDS ORDERED: MORPHINE 4 MG/ML 1ML SYRINGE IV ONE (13:45)
[2016-12-27] MEDS: CETIRIZINE (ZyrTEC) 10 MG TAB PO SCH (20:23)
[2016-12-27] MEDS: SERTRALINE HCL 25 MG TABLET PO SCH (20:23)
[2016-12-27] MEDS: ASPIRIN 81 MG ENTERIC TAB PO SCH (20:23)
[2016-12-27] MEDS: ATENOLOL 25 MG TAB PO SCH (20:23)
[2016-12-27] MEDS: LISINOPRIL 20 MG TAB PO SCH (20:23)
[2016-12-27] MEDS: ROSUVASTATIN 10 MG TAB (CRESTOR) PO SCH (20:23)
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
[2016-12-28] VITALS (7 sets, daily range): BP systolic 129–152; BP diastolic 69–85
[2016-12-28] MEDS: PERCOCET 5MG/325MG TAB PO PRN ×3 (04:41→19:25)
[2016-12-28 06:11] LABS: MEAN CORPUSCULAR HEMOGLOBIN 31.9 pg (27.0-33.0); MEAN CORPUSCULAR HGB CONC 33.6 g/dl (32.0-36.5); MEAN CORPUSCULAR VOLUME 94.9 fl (80.0-96.0); RED CELL DISTRIBUTION WIDTH 12.9 % (11.5-14.5); WHITE BLOOD COUNT 11.1 K/mm3 (4.0-10.0)
[2016-12-28 06:32] LABS: ANION GAP 11 MEQ/L (8-16); BLOOD UREA NITROGEN 13 MG/DL (7-18); CALCIUM LEVEL 8.7 MG/DL (8.8-10.2); CARBON DIOXIDE LEVEL 23 MEQ/L (21-32); CHLORIDE LEVEL 105 MEQ/L (98-107); CREATININE FOR GFR 0.63 MG/DL (0.70-1.30); GLOMERULAR FILTRATION RATE > 60.0 (>42); GLUCOSE, FASTING 124 MG/DL (83-110); MAGNESIUM LEVEL 2.3 MG/DL (1.8-2.4); POTASSIUM SERUM 4.8 MEQ/L (3.5-5.1); SODIUM LEVEL 139 MEQ/L (136-145)
[2016-12-28] MEDS: oxyCODONE 15 MG CR TAB PO SCH ×2 (08:32→21:34)
[2016-12-28] MEDS: DOXYCYCLINE HYCLATE 100 MG TAB PO SCH ×2 (08:32→21:34)
[2016-12-28] MEDS: ENOXAPARIN 40 MG/0.4 ML SYRINGE (J1650) SC SCH (08:33)
[2016-12-28] MEDS: SENOKOT S TAB PO SCH ×2 (08:33→21:00)
[2016-12-28] MEDS: HumaLOG INSULIN (NovoLOG) PER UNIT SC SCH ×4 (08:33→21:00)
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
[2016-12-28] MEDS: ROSUVASTATIN 10 MG TAB (CRESTOR) PO SCH (21:33)
[2016-12-28] MEDS: ASPIRIN 81 MG ENTERIC TAB PO SCH (21:34)
[2016-12-28] MEDS: LISINOPRIL 20 MG TAB PO SCH (21:34)
[2016-12-28] MEDS: CETIRIZINE (ZyrTEC) 10 MG TAB PO SCH (21:34)
[2016-12-28] MEDS: SERTRALINE HCL 25 MG TABLET PO SCH (21:34)
[2016-12-28] MEDS: ATENOLOL 25 MG TAB PO SCH (21:35)
[2016-12-29 02:00] VITALS: BP 156/83
[2016-12-29 06:00] VITALS: BP 133/80
[2016-12-29 06:00] LABS: MEAN CORPUSCULAR HGB CONC 33.9 g/dl (32.0-36.5); MEAN CORPUSCULAR VOLUME 94.3 fl (80.0-96.0); RED CELL DISTRIBUTION WIDTH 13.2 % (11.5-14.5); WHITE BLOOD COUNT 10.6 K/mm3 (4.0-10.0)
[2016-12-29 06:22] LABS: ANION GAP 8 MEQ/L (8-16); BLOOD UREA NITROGEN 12 MG/DL (7-18); CARBON DIOXIDE LEVEL 26 MEQ/L (21-32); CHLORIDE LEVEL 104 MEQ/L (98-107); CREATININE FOR GFR 0.65 MG/DL (0.70-1.30); GLOMERULAR FILTRATION RATE > 60.0 (>42); GLUCOSE, FASTING 118 MG/DL (83-110); MAGNESIUM LEVEL 2.4 MG/DL (1.8-2.4); POTASSIUM SERUM 4.8 MEQ/L (3.5-5.1); SODIUM LEVEL 138 MEQ/L (136-145)
[2016-12-29] MEDS: DOXYCYCLINE HYCLATE 100 MG TAB PO SCH ×2 (08:21→20:07)
[2016-12-29] MEDS: HumaLOG INSULIN (NovoLOG) PER UNIT SC SCH ×4 (08:21→20:17)
[2016-12-29] MEDS: SENOKOT S TAB PO SCH ×2 (08:21→20:08)
[2016-12-29] MEDS: ENOXAPARIN 40 MG/0.4 ML SYRINGE (J1650) SC SCH (08:22)
[2016-12-29] MEDS: oxyCODONE 15 MG CR TAB PO SCH ×2 (08:22→20:07)
[2016-12-29] MEDS: PERCOCET 5MG/325MG TAB PO PRN (13:29)
[2016-12-29] MEDS: ASPIRIN 81 MG ENTERIC TAB PO SCH (20:06)
[2016-12-29] MEDS: ROSUVASTATIN 10 MG TAB (CRESTOR) PO SCH (20:06)
[2016-12-29] MEDS: ATENOLOL 25 MG TAB PO SCH (20:07)
[2016-12-29] MEDS: LISINOPRIL 20 MG TAB PO SCH (20:07)
[2016-12-29] MEDS: SERTRALINE HCL 25 MG TABLET PO SCH (20:07)
[2016-12-29] MEDS: CETIRIZINE (ZyrTEC) 10 MG TAB PO SCH (20:07)
[2016-12-30 06:00] VITALS: BP 160/87
[2016-12-30 06:34] LABS: MEAN CORPUSCULAR HEMOGLOBIN 31.3 pg (27.0-33.0); MEAN CORPUSCULAR HGB CONC 32.8 g/dl (32.0-36.5); MEAN CORPUSCULAR VOLUME 95.4 fl (80.0-96.0); RED CELL DISTRIBUTION WIDTH 12.8 % (11.5-14.5); WHITE BLOOD COUNT 11.6 K/mm3 (4.0-10.0)
[2016-12-30 06:45] LABS: ANION GAP 9 MEQ/L (8-16); BLOOD UREA NITROGEN 12 MG/DL (7-18); CALCIUM LEVEL 8.9 MG/DL (8.8-10.2); CARBON DIOXIDE LEVEL 27 MEQ/L (21-32); CHLORIDE LEVEL 103 MEQ/L (98-107); CREATININE FOR GFR 0.63 MG/DL (0.70-1.30); GLOMERULAR FILTRATION RATE > 60.0 (>42); GLUCOSE, FASTING 120 MG/DL (83-110); MAGNESIUM LEVEL 2.4 MG/DL (1.8-2.4); POTASSIUM SERUM 4.1 MEQ/L (3.5-5.1); SODIUM LEVEL 139 MEQ/L (136-145)
[2016-12-30] MEDS: SENOKOT S TAB PO SCH ×2 (09:00→21:00)
[2016-12-30] MEDS: HumaLOG INSULIN (NovoLOG) PER UNIT SC SCH ×4 (09:54→21:00)
[2016-12-30] MEDS: oxyCODONE 15 MG CR TAB PO SCH ×2 (09:55→21:34)
[2016-12-30] MEDS: ENOXAPARIN 40 MG/0.4 ML SYRINGE (J1650) SC SCH (09:55)
[2016-12-30] MEDS: DOXYCYCLINE HYCLATE 100 MG TAB PO SCH ×2 (09:55→21:38)
[2016-12-30] MEDS: PERCOCET 5MG/325MG TAB PO PRN ×2 (12:01→21:38)
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
[2016-12-30] MEDS: ASPIRIN 81 MG ENTERIC TAB PO SCH (21:34)
[2016-12-30 21:37] VITALS: BP 140/80
[2016-12-30] MEDS: ROSUVASTATIN 10 MG TAB (CRESTOR) PO SCH (21:37)
[2016-12-30] MEDS: LISINOPRIL 20 MG TAB PO SCH (21:37)
[2016-12-30] MEDS: ATENOLOL 25 MG TAB PO SCH (21:37)
[2016-12-30] MEDS: CETIRIZINE (ZyrTEC) 10 MG TAB PO SCH (21:38)
[2016-12-30] MEDS: SERTRALINE HCL 25 MG TABLET PO SCH (21:38)
[2016-12-31 06:00] VITALS: BP 158/80
[2016-12-31] MEDS ORDERED: OXYC15TA66 PO (06:02)
[2016-12-31] MEDS ORDERED: PERCOCET PO (06:02)
[2016-12-31] MEDS ORDERED: SENN1TAB2 PO (06:02)
[2016-12-31 07:00] LABS: MEAN CORPUSCULAR HEMOGLOBIN 31.7 pg (27.0-33.0); MEAN CORPUSCULAR HGB CONC 33.2 g/dl (32.0-36.5); MEAN CORPUSCULAR VOLUME 95.3 fl (80.0-96.0); RED CELL DISTRIBUTION WIDTH 12.7 % (11.5-14.5)
[2016-12-31 07:06] LABS: ANION GAP 9 MEQ/L (8-16); BLOOD UREA NITROGEN 12 MG/DL (7-18); CALCIUM LEVEL 8.3 MG/DL (8.8-10.2); CARBON DIOXIDE LEVEL 27 MEQ/L (21-32); CHLORIDE LEVEL 104 MEQ/L (98-107); CREATININE FOR GFR 0.67 MG/DL (0.70-1.30); GLOMERULAR FILTRATION RATE > 60.0 (>42); GLUCOSE, FASTING 113 MG/DL (83-110); MAGNESIUM LEVEL 2.4 MG/DL (1.8-2.4); POTASSIUM SERUM 4.2 MEQ/L (3.5-5.1); SODIUM LEVEL 140 MEQ/L (136-145)
[2016-12-31] MEDS: HumaLOG INSULIN (NovoLOG) PER UNIT SC SCH (08:15)
[2016-12-31] MEDS: DOXYCYCLINE HYCLATE 100 MG TAB PO SCH (08:16)
[2016-12-31] MEDS: oxyCODONE 15 MG CR TAB PO SCH (08:16)
[2016-12-31] MEDS: SENOKOT S TAB PO SCH (08:16)
[2016-12-31] MEDS: ENOXAPARIN 40 MG/0.4 ML SYRINGE (J1650) SC SCH (08:16)
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
== END 2016-12-31 10:15 | DRG 934 ==
LOC: M ED 12:29 → M ED INP 18:46 → M MSPAV 20:01
PROVIDERS: ADMIT Internal Medicine; ATTEND Internal Medicine
PROC: 0JDQ0ZZ Extraction of Right Foot Subcutaneous Tissue and Fascia, Open Approach (ICD-10-PCS; principal; 2016-12-19 18:57)
DX: T25.321A Burn of third degree of right foot, initial encounter (principal); L03.115 Cellulitis of right lower limb; E87.1 Hypo-osmolality and hyponatremia; Z68.41 Body mass index [BMI] 40.0-44.9, adult; T25.221A Burn of second degree of right foot, initial encounter; E11.40 Type 2 diabetes mellitus with diabetic neuropathy, unspecified; I10 Essential (primary) hypertension; E78.5 Hyperlipidemia, unspecified; I25.10 Atherosclerotic heart disease of native coronary artery without angina pectoris; Z87.891 Personal history of nicotine dependence; Z79.82 Long term (current) use of aspirin; Z79.84 Long term (current) use of oral hypoglycemic drugs; Z79.899 Other long term (current) drug therapy; X12.XXXA Contact with other hot fluids, initial encounter; Y93.G3 Activity, cooking and baking; Y92.009 Unspecified place in unspecified non-institutional (private) residence as the place of occurrence of the external cause; J30.2 Other seasonal allergic rhinitis; Z95.5 Presence of coronary angioplasty implant and graft; F39 Unspecified mood [affective] disorder; B95.61 Methicillin susceptible Staphylococcus aureus infection as the cause of diseases classified elsewhere; B95.4 Other streptococcus as the cause of diseases classified elsewhere; E66.9 Obesity, unspecified

== ENCOUNTER → 2017-01-06 | Outpatient (REF) ==
[~2017-01-06] MED LIST: ASPI1TAB15 PO; ATEN25TA PO; CETI10TA PO; CRES40TA PO; HYDR25TA6 PO; HYDR25TAB PO; LISI-538 PO; METF-415 PO; NITR0.4S14 SC; NITR4TASL SL; OXYC15TA66 PO; PERCOCET PO; ROSU40TA PO; SENN1TAB2 PO; SERT25TA88 PO
[2017-01-06 12:18] LABS: ANION GAP 7 MEQ/L (8-16); BLOOD UREA NITROGEN 13 MG/DL (7-18); CALCIUM LEVEL 9.5 MG/DL (8.8-10.2); CARBON DIOXIDE LEVEL 31 MEQ/L (21-32); CHLORIDE LEVEL 96 MEQ/L (98-107); CREATININE FOR GFR 0.73 MG/DL (0.70-1.30); GLOMERULAR FILTRATION RATE > 60.0 (>42); GLUCOSE, FASTING 96 MG/DL (83-110); POTASSIUM SERUM 4.2 MEQ/L (3.5-5.1); SODIUM LEVEL 134 MEQ/L (136-145)
[2017-01-06 12:40] LABS: MEAN CORPUSCULAR HEMOGLOBIN 32.2 pg (27.0-33.0); MEAN CORPUSCULAR HGB CONC 33.9 g/dl (32.0-36.5); MEAN CORPUSCULAR VOLUME 94.8 fl (80.0-96.0); RED CELL DISTRIBUTION WIDTH 12.7 % (11.5-14.5); WHITE BLOOD COUNT 11.6 K/mm3 (4.0-10.0)
== END ==
PROVIDERS: ATTEND Internal Medicine
DX: T25.321A Burn of third degree of right foot, initial encounter (principal); X58.XXXA Exposure to other specified factors, initial encounter; Y92.89 Other specified places as the place of occurrence of the external cause; Y99.8 Other external cause status

== ENCOUNTER 2017-04-23 09:50 | Day surgery (SDC) | payer MEDICARE ==
[~2017-04-23] VITALS: Ht 177.8 cm; Wt 131.1 kg
[~2017-04-23 09:50] MED LIST changes: +IBUP-1114 PO; +METF500T13 PO; +OFLOXACIN 0.3 % (OCUFLOX) OPTH SOL 5ML OS ONE; +PHENYLEPHRINE 2.5% OPHTH SOL 2ML OS ONE; +PROPARACAINE 0.5% OPHTH SOL 15ML OS ONE; +TROPICAMIDE 1% OPHTH SOLN 2ML OS ONE
[2017-04-23] MEDS ORDERED: LR 1,000 ML IV ONE (10:00)
[2017-04-23] MEDS ORDERED: CEFUROXIME 1MG/0.1ML INTRACAMERAL INJ As Ordered ONE (13:12)
[2017-04-23] MEDS ORDERED: POVIDONE-IODINE 5% OPHTH PREP SOL 30ML As Ordered ONE (13:12)
[2017-04-23] MEDS ORDERED: ACETYLCHOLINE OPHTH SOLN 1% 2ML (MIOCHOL-E) As Ordered ONE (13:12)
[2017-04-23] MEDS ORDERED: BALANCED SALT IRRIGATION SOLUTION 500ML BAG (FOR OR EYE MACHINE) As Ordered ONE (13:12)
[2017-04-23] MEDS ORDERED: LIDOCAINE 0.75%/EPINEPHRINE 0.025% IN BSS 1ML SYR INTRACAMERAL (OR ONLY) As Ordered ONE (13:12)
[2017-04-23] MEDS ORDERED: DUOVISC (0.50ML VISCOAT/0.55ML PROVISC) OPHTH KIT As Ordered ONE (13:12)
[2017-04-23] MEDS ORDERED: fentaNYL 100 MCG/2 ML INJECTION (J3010) As Ordered ONE (13:43)
[2017-04-23] MEDS ORDERED: MIDAZOLAM INJ 2 MG/2 ML VIAL (J2250) As Ordered ONE (13:43)
[2017-04-23] MEDS ORDERED: ACETAMINOPHEN TAB 650MG DOSE (2X325MG) PO PRN (14:30)
[2017-04-23] MEDS ORDERED: ONDANSETRON 4MG/2ML VIAL (J2405) IV PRN (14:30)
[2017-04-23 15:00] VITALS: BP 160/67
--- NOTE | 2017-04-24 13:07 | RO ---
DATE OF PROCEDURE: 04/23/2017 PREOPERATIVE DIAGNOSIS: Visually significant nuclear sclerotic cataract left eye. POSTOPERATIVE DIAGNOSIS: Visually significant nuclear sclerotic cataract left eye. PROCEDURE: Cataract extraction with use of phacoemulsification and placement of intraocular lens, AU00T0, 21, left eye. SURGEON: Eric Burgess DO SHINE WORKER: ANESTHESIA: Local with monitored anesthesia care (MAC). COMPLICATIONS: None. POSTOPERATIVE CONDITION: Stable. INDICATION FOR SURGERY: Blurred vision left eye affecting patient's activities of daily living. DESCRIPTION OF PROCEDURE: The patient was seen in the preoperative area and properly identified. The correct operative eye was identified and marked. Attention was turned to that eye. The patient received topical antibiotics in the preoperative area. The patient then received topical dilating drops consisting of tropicamide and phenylephrine. The patient was then transferred to the operating room. The correct side was re-identified. The patient received topical anesthetics and antibiotics on the surface of the eye. The eye was prepped and draped in a sterile fashion. The upper and lower eyelids were isolated with Tegaderm tape, and the lids were held open with an adjustable speculum. Using a sideport blade, a paracentesis incision was made. Intraocular preservative-free lidocaine was then injected into the anterior chamber. Viscoelastic was then injected into the anterior chamber through the paracentesis. Using a 2.65 mm sharp-tipped keratome, the anterior chamber was entered via a temporal clear corneal incision. A continuous curvilinear capsulorrhexis was created with the aid of a 26-gauge cystotome and Utrata forceps. Hydrodissection was performed with balanced salt solution (BSS) on a blunt cannula until the nucleus was freely mobile. The crystalline lens was phacoemulsified and aspirated. Additional cohesive viscoelastic was placed into the capsular bag to deepen it. An AU00T0 lens was placed into the capsular bag and confirmed by visualizing the continuous curvilinear capsulorrhexis. Additional irrigation and aspiration was used to remove cortical material and remaining viscoelastic. The clear corneal incision was hydrated with BSS on a blunt cannula. The lens was well positioned. The incisions were then tested for leaks and found to be negative. The eye was then palpated for appropriate pressure and adjusted accordingly with BSS. The eyelid speculum was carefully removed. TobraDex ointment was placed in the eye. An eye patch and shield were then secured over the eye. The patient tolerated the procedure well and was discharged to the recovery unit in a stable condition.
== END 2017-04-23 15:00 | disposition home or self-care (01) ==
LOC: M SDC 09:50
PROVIDERS: ATTEND Ophthalmology
DX: H25.12 Age-related nuclear cataract, left eye (principal); I25.10 Atherosclerotic heart disease of native coronary artery without angina pectoris; I10 Essential (primary) hypertension; E78.5 Hyperlipidemia, unspecified; E11.9 Type 2 diabetes mellitus without complications; Z98.61 Coronary angioplasty status; Z79.82 Long term (current) use of aspirin; Z79.899 Other long term (current) drug therapy
CPT/HCPCS: 66984; J2250; J3010; V2632

== ENCOUNTER 2017-05-21 08:27 | Day surgery (SDC) | payer MEDICARE ==
[~2017-05-21 08:27] MED LIST changes: -ASPI1TAB15 PO; -ATEN25TA PO; -CETI10TA PO; -CRES40TA PO; -HYDR25TA6 PO; -HYDR25TAB PO; -IBUP-1114 PO; -LISI-538 PO; -METF-415 PO; -METF500T13 PO; +MIDAZOLAM INJ 2 MG/2 ML VIAL (J2250) As Ordered; -NITR0.4S14 SC; -NITR4TASL SL; -OFLOXACIN 0.3 % (OCUFLOX) OPTH SOL 5ML OS ONE; -OXYC15TA66 PO; -PERCOCET PO; -PHENYLEPHRINE 2.5% OPHTH SOL 2ML OS ONE; -PROPARACAINE 0.5% OPHTH SOL 15ML OS ONE; -ROSU40TA PO; -SENN1TAB2 PO; -SERT25TA88 PO; -TROPICAMIDE 1% OPHTH SOLN 2ML OS ONE; +fentaNYL 100 MCG/2 ML INJECTION (J3010) As Ordered
[2017-05-21] MEDS: OFLOXACIN 0.3 % (OCUFLOX) OPTH SOL 5ML OD (10:51)
[2017-05-21] MEDS: TROPICAMIDE 1% OPHTH SOLN 2ML OD (10:51)
[2017-05-21] MEDS: PHENYLEPHRINE 2.5% OPHTH SOL 2ML OD (10:51)
[2017-05-21] MEDS: PROPARACAINE 0.5% OPHTH SOL 15ML OD (10:52)
[2017-05-21] MEDS: LIDOCAINE 0.75%/EPINEPHRINE 0.025% IN BSS 1ML SYR INTRACAMERAL (OR ONLY) As Ordered (11:53)
[2017-05-21] MEDS: ACETYLCHOLINE OPHTH SOLN 1% 2ML (MIOCHOL-E) As Ordered (11:53)
[2017-05-21] MEDS: POVIDONE-IODINE 5% OPHTH PREP SOL 30ML As Ordered (11:53)
[2017-05-21] MEDS: BALANCED SALT IRRIGATION SOLUTION 500ML BAG (FOR OR EYE MACHINE) As Ordered (11:53)
[2017-05-21] MEDS: DUOVISC (0.50ML VISCOAT/0.55ML PROVISC) OPHTH KIT As Ordered (11:53)
[2017-05-21] MEDS: CEFUROXIME 1MG/0.1ML INTRACAMERAL INJ As Ordered (11:53)
== END 2017-05-21 13:58 | disposition home or self-care (01) ==
LOC: M SDC 08:27
DX: H25.11 Age-related nuclear cataract, right eye (principal); I10 Essential (primary) hypertension; E78.00 Pure hypercholesterolemia, unspecified; E11.9 Type 2 diabetes mellitus without complications; J44.9 Chronic obstructive pulmonary disease, unspecified; I25.10 Atherosclerotic heart disease of native coronary artery without angina pectoris; G47.33 Obstructive sleep apnea (adult) (pediatric); M12.9 Arthropathy, unspecified; R06.02 Shortness of breath; R06.83 Snoring; E66.9 Obesity, unspecified; Z68.41 Body mass index [BMI] 40.0-44.9, adult; Z79.899 Other long term (current) drug therapy; Z79.84 Long term (current) use of oral hypoglycemic drugs; Z79.82 Long term (current) use of aspirin; Z98.61 Coronary angioplasty status; Z95.5 Presence of coronary angioplasty implant and graft
CPT/HCPCS: 66984

== ENCOUNTER → 2018-07-15 | Outpatient (REF) | payer MEDICARE ==
[~2018-07-15] MED LIST changes: +ASPI1TAB15 PO; +ATEN25TA PO; +CETI10TA PO; +CRES40TA PO; +HYDR25TA6 PO; +HYDR25TAB PO; +IBUP-1114 PO; +LISI-538 PO; +METF-415 PO; +METF500T13 PO; -MIDAZOLAM INJ 2 MG/2 ML VIAL (J2250) As Ordered; +NITR0.4S14 SC; +NITR4TASL SL; +OXYC15TA66 PO; +PERCOCET PO; +ROSU40TA3 PO; +SENN1TAB2 PO; +SERT25TA88 PO; -fentaNYL 100 MCG/2 ML INJECTION (J3010) As Ordered
[2018-07-15 17:30] LABS: INFLUENZA A AMPLIFICATION NEGATIVE (NEGATIVE); INFLUENZA B AMPLIFICATION NEGATIVE (NEGATIVE)
== END ==
LOC: M LAB REF 16:29
PROVIDERS: ATTEND Nurse Practitioner Adult Health
DX: R50.9 Fever, unspecified (principal); J06.9 Acute upper respiratory infection, unspecified